=== PATIENT | female | born 1935 | race Caucasian/White ===

== ENCOUNTER 2019-01-13 09:39 | Inpatient (IN) | payer MEDICARE, OTHER ==
[~2019-01-13] VITALS: Ht 160 cm; Wt 73.2 kg
[2019-01-13] VITALS (8 sets, daily range): BP systolic 98–130; BP diastolic 40–72
[2019-01-13] MEDS ORDERED: COLACE100 MG PO (09:44)
[2019-01-13] MEDS ORDERED: ZOLOFT100 MG PO (09:44)
[2019-01-13] MEDS ORDERED: ALDACTONE25 MG PO (09:44)
[2019-01-13] MEDS ORDERED: DONEPEZIL HCL10 MG PO (09:45)
[2019-01-13] MEDS ORDERED: K-TAB10 MEQ PO (09:45)
[2019-01-13] MEDS ORDERED: COREG12.5 MG PO (09:45)
[2019-01-13] MEDS ORDERED: MELATONIN10 M1 PO (09:46)
[2019-01-13] MEDS ORDERED: VITAMIN B-121000 MCG PO (09:46)
[2019-01-13] MEDS ORDERED: SENNA LAXATIVE8.6 MG PO (09:46)
[2019-01-13] MEDS ORDERED: ACIDOPHILUS-PE1 EACH PO (09:48)
[2019-01-13] MEDS ORDERED: DEPAKOTE125 MG PO (09:48)
[2019-01-13 10:30] LABS: INR 1.22 (0.85-1.17); PROTIME 14.9 SECONDS (11.6-15.0)
[2019-01-13 10:33] LABS: ALBUMIN 3.1 g/dL (3.4-5.0); ALKALINE PHOSPHATASE 114 U/L (46-116); ALT (SGPT) 21 U/L (10-68); BILIRUBIN - TOTAL 1.59 mg/dL (0.2-1.3); CALC OSMOLALITY 276 mosm/kg (275-300); CALCIUM 9.1 mg/dL (8.5-10.1); CARBON DIOXIDE 24.2 mmol/L (21.0-32.0); CHLORIDE - SERUM 99 mmol/L (98-107); GLUCOSE 128 mg/dL (74-106); POTASSIUM - SERUM 3.9 mmol/L (3.5-5.1); PROTEIN - SERUM 7.8 g/dL (6.4-8.2); SODIUM 136 mmol/L (136-145); UREA NITROGEN 20 mg/dL (7-18); eGFR NON AFRICAN AMERICAN 56 mL/min (90-120)
[2019-01-13 10:43] LABS: CKMB 0.9 U/L (0.0-3.6); CREATINE KINASE 146 UL (21-215)
[2019-01-13 10:44] LABS: TROPONIN-I < 0.017 ng/mL (0.000-0.060)
--- NOTE | 2019-01-13 11:03 | NUR ---
MAYS CATH INSERTED IN BLADDER TO GRAVITY DRAIN BY Abeba TINSLEY RN PER / PIOTR
[2019-01-13 11:19] LABS: APPEARANCE HAZY (CLEAR); COLOR YELLOW (YELLOW); NITRITE POSITIVE (NEGATIVE)
[2019-01-13 11:20] LABS: BACTERIA MANY /hpf (NONE SEEN); BILIRUBIN NEGATIVE (NEGATIVE); GLUCOSE NEGATIVE (NEGATIVE); KETONE NEGATIVE (NEGATIVE); PROTEIN 1+ mg/dL (NEGATIVE); RED CELLS - URINE 0-5 /hpf (0-5); UROBILINOGEN NORMAL (NORMAL); WHITE CELLS - URINE 25-50 /hpf (0-5)
[2019-01-13 11:21] LABS: MUCUS <1+ /lpf (NONE SEEN)
[2019-01-13 11:49] LABS: BASOPHILS 0.3 % (0-2); EOSINOPHILS 0.4 % (0-7); HEMATOCRIT 42.6 % (36.0-48.0); HEMOGLOBIN 14.1 g/dL (12-16); IMMATURE GRANULOCYTES 0.2 % (0-5); LYMPHOCYTES 15.8 % (15-50); MCH 28.1 pg (26.0-34.0); MCHC 33.1 g/dL (31.0-37.0); MCV 84.9 fL (80.0-100.0); MEAN PLATELET VOLUME 13.3 fL (7.4-10.4); MONOCYTES 14.5 % (2-11); NEUTROPHILS 68.8 % (40-80); PLATELET COUNT 184 10x3/uL (130-400); RBC 5.02 10x6/uL (4.00-5.40); RDW 16.5 % (11.5-14.5); WBC 13.4 10x3/uL (4.8-10.8)
--- NOTE | 2019-01-13 14:10 | MORECARE ---
CASE MANAGEMENT DISCHARGE SUMMARY PATIENT: BRENT HAMMOND UNIT: [id number] ADM DATE: 01/13/19 AGE: 83 : 34 SEX: F ROOM/BED: D.E10 AUTHOR: SEDRICK SIMS PHYSICIAN: REFERRING PHYSICIAN: RAMANA PERALES MD DATE OF SERVICE: 01/13/19 Discharge Plan Patient Name: BRENT HAMMOND [facility] [facility] 1935 Planned Disposition: Anticipated Discharge Date: Discharge Date: Expected LOS: Initial Reviewer: [email or web address] Initial Review Date: 01/13/2019 Generated: 01/13/19 3:09 pm Patient Name: BRENT HAMMOND Page 50250 at 1410 All edits/amendments must be made on the electronic document DICTATION DATE: 01/13/191408 PROCESS VALIDATION ENGINEER: TORREY 01/13/19 140 RPT#: [id number] DC DATE: STATUS: ADM IN [facility] [address] [place] [address] END OF REPORT
--- NOTE | 2019-01-13 14:28 | MORECARE ---
CASE MANAGEMENT DISCHARGE SUMMARY PATIENT: BRENT HAMMOND UNIT: [id number] ADM DATE: 01/13/19 AGE: 83 : 34 SEX: F ROOM/BED: D.E10 AUTHOR: SEDRICK SIMS PHYSICIAN: REFERRING PHYSICIAN: RAMANA PREALES MD DATE OF SERVICE: 01/13/19 Discharge Plan Patient Name: BRENT HAMMOND [facility] [facility] 1935 Planned Disposition: Anticipated Discharge Date: Discharge Date: Expected LOS: Initial Reviewer: [email or web address] Initial Review Date: 01/13/2019 Generated: 01/13/19 3:27 pm Last DP export: 01/13/19 1:09 p Patient Name: BRENT HAMMOND Page 62469 at 1428 All edits/amendments must be made on the electronic document DICTATION DATE: 01/13/191426 FIELD MERCHANDISER: TORREY 01/13/191426 RPT#: [id number] DC DATE: STATUS: ADM IN [facility] [address] [place] [address] END OF REPORT
--- NOTE | 2019-01-13 15:52 | NUR ---
ROCEPHIN COMPLETE AT 1431PM.
--- NOTE | 2019-01-13 16:19 | NUR ---
ZITHROMAX INFUSION COMPLETE AT 1615PM
--- NOTE | 2019-01-13 18:25 | NUR ---
PT ARRIVED TO FLOOR VIA STRETCHER FROM ER, PT TRANSFERRED INTO [facility] 2 BED. PT IS NOT MENTALLY ABLE TO ANSWER QUESTIONS AND NO FAMILY IS PRESENT AT THIS TIME. WILL CONT TO FOLLOW POC
--- NOTE | 2019-01-13 19:46 | NUR ---
RESUMING PATIENT CARE. PATIENT RESTING COMFORTABLY IN BED. RESPIRATIONS ARE EVEN AND UNLABORED. NO S/S OF DISTRESS. NO C/O PAIN. CALL LIGHT WITHIN REACH. WILL CPOC.
[2019-01-14 00:03] VITALS: BP 120/73
[2019-01-14 04:00] VITALS: BP 105/70
[2019-01-14 05:57] LABS: BASOPHILS 0.2 % (0-2); EOSINOPHILS 0.2 % (0-7); HEMATOCRIT 37.8 % (36.0-48.0); HEMOGLOBIN 12.5 g/dL (12-16); IMMATURE GRANULOCYTES 0.2 % (0-5); LYMPHOCYTES 18.8 % (15-50); MCH 28.2 pg (26.0-34.0); MCHC 33.1 g/dL (31.0-37.0); MCV 85.3 fL (80.0-100.0); MEAN PLATELET VOLUME 12.8 fL (7.4-10.4); MONOCYTES 14.4 % (2-11); NEUTROPHILS 66.2 % (40-80); PLATELET COUNT 196 10x3/uL (130-400); RBC 4.43 10x6/uL (4.00-5.40); RDW 17.1 % (11.5-14.5); WBC 12.4 10x3/uL (4.8-10.8)
[2019-01-14 06:14] LABS: ALBUMIN 2.7 g/dL (3.4-5.0); ANION GAP 18.2 mmol/L (8-16); BILIRUBIN - TOTAL 1.32 mg/dL (0.2-1.3); CALCIUM 8.7 mg/dL (8.5-10.1); CARBON DIOXIDE 21.7 mmol/L (21.0-32.0); POTASSIUM - SERUM 3.9 mmol/L (3.5-5.1); PROTEIN - SERUM 7.1 g/dL (6.4-8.2)
--- NOTE | 2019-01-14 06:23 | NUR ---
CASTING MOLDER CALLED SHE LEFT NOTE FOR OR ABOUT PRE OP ORDERS. ALSO CALLED OR THIS AM. NURSE THAT ANSWERED SAID "SHE WILL LET THEM KNOW."
--- NOTE | 2019-01-14 06:58 | NUR ---
LEAVING FOR OR BY BED. WILL CONT. PLAN OF CARE.
--- NOTE | 2019-01-14 08:36 | NUR ---
PLASMA BLADE SET TO 6/8 BOVIE PAD LEFT THIGH [id number] EXP 03/26/2020
[2019-01-14 10:23] VITALS: BP 114/60
--- NOTE | 2019-01-14 10:25 | NUR ---
BACK FROM OR. VS WNL. RIGHT HIP DRSG CLEAN AND DRY. CALL LIGHT IN REACH. WILL CONT. PLAN OF CARE.
[2019-01-14 12:04] VITALS: Ht 160 cm; Wt 73.2 kg
[2019-01-14 12:25] VITALS: BP 119/65
--- NOTE | 2019-01-14 12:37 | OP ---
PATIENT NAME: BRENT CLAY MEDICAL RECORD: [id number] :33 LOCATION:D. D.2117 ADMISSION DATE:01/13/19 SURGEON: DANY CLAIRE DO DATE OF OPERATION: 01/14/2019 PROCEDURE PERFORMED: Right simona hip arthroplasty. PREOPERATIVE DIAGNOSIS: Displaced right femoral neck fracture. POSTOPERATIVE DIAGNOSIS: Displaced right femoral neck fracture. INDICATIONS: Ms. Clay is an 83-year-old demented female who had been in the group home and started bearing weight on her hip 2 days ago. Her family was concerned. She was brought in. X-rays were taken and she was seen to have a displaced femoral neck fracture on the right, unknown time as she had been in an unwitnessed fall. They were not aware of any other problems. They weighed the risks and benefits including , infection, bleeding, blood clots and the fact that due to her mental state and other health problems, her mortality rate is very high with this even if we did not do anything, but they chose to do surgery for pain control as a palliative measure and they were aware of the risks and her daughter signed the consent. SURGEON: Dany Claire DO DESCRIPTION OF PROCEDURE: The patient was given a block by anesthesia in the preoperative area, taken to the operative suite, given a gram of Ancef preoperatively. She was sedated and intubated and then moved over to the [place] table. The right hip was then prepped and draped in sterile fashion. A timeout was performed. Everyone was in agreement as to the correct side, site, patient and procedure. Incision then began over the anterior hip. Careful dissection was made down to the tensor fascia lauren fascia. This was incised with a Bovie. All bleeding was coagulated with Aquamantys throughout the procedure. The fascia was then taken anterior and the muscle belly posterior and the interval was opened up between the rectus and the tensor fascia lauren muscle and rectus stayed medial to the tensor fascia lauren laterally. This was opened up. The fascia was removed over the ascending branch, lateral femoral circumflex. These were tied off and coagulated with the Aquamantys and then cut. The capsule was then exposed with Homans' on either side of the neck and the capsule was opened and then a Hohmann was put inside on the neck. With the capsule tagged, it was a subcapital femoral neck fracture and so a neck cut was made. This was taken out and then the head was removed. The ligamentum teres was then removed out of the acetabulum and any bleeding was coagulated with Aquamantys at that time. The femur was then exposed. A canal finder was used and then a cookie cutter and then broaching began up to a 14. The 14 fit well. This was trialed with -6 neck and seemed to fit well, was in good position on the AP pelvis and the stem fit very well in the femur. This was then dislocated and then the actual implant was placed and the hip was reduced. Once it was reduced, x-rays were again taken, the femur looked good. No fractures were seen. It had good fill in the shaft as well as the lengths of the lesser trochanters on the AP pelvis. The wound was then irrigated. Surgicel powder and vancomycin-tobramycin powder was placed in the wound. The tensor fascia lauren fascia was then closed with #1 Vicryl, first in [id number] and then a running locking stitch and then the skin was closed with 2-0 Vicryl in inverted interrupted fashion, 4-0 Monocryl ran on the skin and Prineo on the skin. She was then dressed with Telfa and Tegaderm. She was awakened and taken to recovery in stable condition. Blood OPERATIVE REPORT [id number] MANISHBRENT Sue loss approximately 100 mL. COMPLICATIONS: None. TRANSINT:[id number] Voice Confirmation ID: [id number] DOCUMENT ID: [id number] DANY CLAIRE DO at 1237 CC: [id number] DICTATION DATE: 01/14/19912 SENIOR RESEARCH SCIENTIST: 01/14/19 1232 ADM IN [facility] [address] [place] [id number]
--- NOTE | 2019-01-14 16:32 | MORECARE ---
CASE MANAGEMENT DISCHARGE SUMMARY PATIENT: BRENT HAMMOND UNIT: [id number] ADM DATE: 01/13/19 AGE: 83 : 34 SEX: F ROOM/BED: D.[facility] AUTHOR: SEDRICK SIMS PHYSICIAN: REFERRING PHYSICIAN: RAMANA PERALES MD DATE OF SERVICE: 01/14/19 Discharge Plan Patient Name: BRENT HAMMOND Facility: [facility]:[place] : 1935 Planned Disposition: Home with Hospice Anticipated Discharge Date: 01/14/19 Discharge Date: Expected LOS: 1 Initial Reviewer: [email or web address] Initial Review Date: 01/13/2019 Generated: 01/14/19 5:31 pm DCPIA - Discharge Planning Initial Assessment Updated by [email or web address]: José Lovett on 01/14/19 4:24 pm * Is the patient Alert and Oriented? Yes * How many steps to enter\exit or inside your home? * PCP DR. TANYA LANDRUM, [facility] * Pharmacy [facility] * Preadmission Environment Hospice * Facility Name [facility] * ADLs Total Dependent * Equipment None * Other Equipment ALL MEDICAL EQUIPMENT PROVIDED BY [facility] * List name and contact numbers for known caregivers / representatives who currently or will assist patient after discharge: YAWHeidi HAMMOND, R, * Verbal permission to speak to the caregivers and representatives has been obtained from the patient. N/A * Community resources currently utilized Hospice Home * Please name any agencies selected above. [facility], 24/03 CARE PROVIDED * Additional services required to return to the preadmission environment? No * Can the patient safely return to the preadmission environment? Yes * Has this patient been hospitalized within the prior 30 days at any hospital? No Last DP export: 01/13/19 1:27 p Patient Name: BRENT HAMMOND Page 18410 at 1632 All edits/amendments must be made on the electronic document DICTATION DATE: 01/14/19 1631 ADVANCED ANALYTICS ASSOCIATE: TORREY 01/14/19 1631 RPT#: [id number] DC DATE: STATUS: ADM IN [facility] [address] [place] [address] END OF REPORT
--- NOTE | 2019-01-14 16:39 | MORECARE ---
CASE MANAGEMENT DISCHARGE SUMMARY PATIENT: BRENT HAMMOND UNIT: [id number] ADM DATE: 01/13/19 AGE: 83 : 34 SEX: F ROOM/BED: D.2861 AUTHOR: BETHANY,DOC PHYSICIAN: REFERRING PHYSICIAN: RAMANA PERALES MD DATE OF SERVICE: 01/14/19 Discharge Plan Patient Name: BRENT HAMMOND Facility: [facility]:[place] : 1935 Planned Disposition: Home with Hospice Anticipated Discharge Date: 01/14/19 Discharge Date: Expected LOS: 1 Initial Reviewer: [email or web address] Initial Review Date: 01/13/2019 Generated: 01/14/19 5:39 pm Comments DCP- Discharge Planning Updated by [email or web address]: José Lovett on 01/14/19 3:[address] Patient Name: BRENT HAMMOND Admission Status: ER Accout number: [id number] Admission Date: 01-13-2019 : 1935 Admission Diagnosis: Attending: RAMANA PERALES Current LOS: 1 Anticipated DC Date: 01-14-2019 Planned Disposition: Home with Hospice Primary Insurance: MEDICARE A & B PLANNED EXTERNAL PROVIDER: [facility] Discharge Planning Comments: CM MET WITH PT AND DAUGHTERYAW, IN ROOM TO DISCUSS DISCHARGE PLANNING AND NEEDS. PT CONFUSED, NON VERBAL. DAUGHTER REPORTS PT IS TOTAL CARE PATIENT LIVING IN [facility] PRIVATE SNF ON [address] IN [place]. THEY REVOKED HOSPICE FOR PT TO HAVE HER HIP FIXED AND PLAN TO RETURN PT TO HOSPICE AT [facility] IN THE PRIVATE SNF. CHOICE LETTER SIGNED BY DAUGHTER. CM PROVIDED AND EXPLAINED IMPORTANT MESSAGE FROM MEDICARE. CM CALLED [facility], , SPOKE TO DOMONIQUE WHO INFORMED CM THAT THEY PLAN TO ACCEPT PT BACK FOR HOSPICE CARE IN THE PRIVATE SNF. THEY WILL NEED NEW ORDER FOR HOSPICE TO "EVALUATE AND ADMIT IF APPROPRIATE" TO COMPLETE ASSESSMENT AND ADMIT AFTER PT ARRIVES AT THE SNF. FOR DISCHARGE, FAX ORDER FOR "HOSPICE EVALUATION AND ADMIT IF APPROPRIATE" TO [facility] AT [phone]. NOTIFY [facility] AT [phone]. [facility] TO EVALUATE PT FOR HOSPICE ADMISSION WITH PLANS TO ACCEPT BACK TO THE PRIVATE SNF. Faucets Assembler: José Lovett DCPIA - Discharge Planning Initial Assessment Updated by [email or web address]: José Lovett on 01/14/19 4:24 pm * Is the patient Alert and Oriented? Yes * How many steps to enter\\exit or inside your home? * PCP DR. TANYA LANDRUM, [facility] * Pharmacy [facility] * Preadmission Environment Hospice * Facility Name [facility] * ADLs Total Dependent * Equipment None * Other Equipment ALL MEDICAL EQUIPMENT PROVIDED BY [facility] * List name and contact numbers for known caregivers / representatives who currently or will assist patient after discharge: YAW HAMMOND, DTR, * Verbal permission to speak to the caregivers and representatives has been obtained from the patient. N/A * Community resources currently utilized Hospice Home * Please name any agencies selected above. [facility], 24/03 CARE PROVIDED * Additional services required to return to the preadmission environment? No * Can the patient safely return to the preadmission environment? Yes * Has this patient been hospitalized within the prior 30 days at any hospital? No External Providers External Provider: [facility] Next Contact Date: 01/14/2019 Service Request Date: Service Type: Resolution: Reviewer: Comments: Last DP export: 01/14/19 3:31 p Patient Name: BRENT HAMMOND Page [id number] at 1639 All edits/amendments must be made on the electronic document DICTATION DATE: 01/14/191638 LAND INSPECTOR: TORREY 01/14/19 1639 RPT#: [id number] DC DATE: STATUS: ADM IN [facility] [address] [place] [address] END OF REPORT
--- NOTE | 2019-01-14 19:35 | NUR ---
RESUMING PATIENT CARE. PATIENT RESTING COMFORTABLY IN BED. RESPIRATIONS ARE EVEN AND UNLABORED. NO S/S OF DISTRESS. NEEDS MET. CALL LIGHT WITHIN REACH. WILL CPOC.
[2019-01-14 20:00] VITALS: BP 140/65
[2019-01-15] VITALS: BP 138/62
[2019-01-15 04:00] VITALS: BP 114/62
[2019-01-15 07:13] LABS: HEMATOCRIT 33.4 % (36.0-48.0); HEMOGLOBIN 10.7 g/dL (12-16); MCH 27.7 pg (26.0-34.0); MCV 86.5 fL (80.0-100.0); MEAN PLATELET VOLUME 12.6 fL (7.4-10.4); RBC 3.86 10x6/uL (4.00-5.40); RDW 17.1 % (11.5-14.5); WBC 11.6 10x3/uL (4.8-10.8)
--- NOTE | 2019-01-15 09:21 | NUR ---
TELEMETRY CAF. IV PATENT. MAYS INTACT. DR. PERALES AT BS. WILL CONT. PLAN OF CARE.
[2019-01-15 11:33] VITALS: BP 97/56
[2019-01-15 15:10] VITALS: BP 112/57
[2019-01-15 20:00] VITALS: BP 148/77
--- NOTE | 2019-01-15 20:00 | NUR ---
INITIAL ROUNDS AND ASSESSMENT COMPLETED. PT LETHARGIC/CONFUSED/RESTLESS. RESISTANT TO HAVING O2 PLACED CORRECTLY AND REMOVING HER TELEMETRY LEAD FROM HER MOUTH TO KEEP HER FROM CHEWING ON IT. IV TO LEFT HAND WITH NS @ 50ML/HR AND CARDIZEM DRIP AT 5ML/HR. UCAF/103 PER TELEMETRY. MAYS PATENT TO BEDSIDE DRAIN BAG.MONITOR AND CPOC.
[2019-01-16] VITALS: BP 150/58
[2019-01-16 04:25] VITALS: BP 147/75
[2019-01-16 04:53] LABS: HEMATOCRIT 33.3 % (36.0-48.0); HEMOGLOBIN 10.7 g/dL (12-16); MCH 27.9 pg (26.0-34.0); MCHC 32.1 g/dL (31.0-37.0); MCV 86.7 fL (80.0-100.0); MEAN PLATELET VOLUME 12.3 fL (7.4-10.4); RBC 3.84 10x6/uL (4.00-5.40); RDW 16.5 % (11.5-14.5); WBC 10.5 10x3/uL (4.8-10.8)
--- NOTE | 2019-01-16 07:30 | NUR ---
RECEIVED PT IN BED EYES CLOSED RESP UNLABORED NAD NOTED WILL CONTINUE MONITOR
[2019-01-16 08:53] VITALS: BP 119/67
--- NOTE | 2019-01-16 09:47 | NUR ---
PT COMBATIVE ATTEMPTING TO BITE STAFF REFUSING TO EAT CONFUSED MEDS ORIENTED TO SELF ONLY
[2019-01-16 13:11] VITALS: BP 122/69
[2019-01-16 16:45] VITALS: BP 110/63
--- NOTE | 2019-01-16 19:18 | NUR ---
RECIEVED UP IN BED WITH EYES CLOSED. EASILY AROUSES WITH VERBAL STIMULI. CONFUSED X4. UNABLE TO ANSWER QUESTIONS. REPORTED THAT PT DOES BITE. WATER GIVEN AND ACCEPTED. SCD'S IN PLACE. DSG TO RIGHT HIP CDI. EDEMA TO RIGHT LOWER EXTREMITY. F/C PATENT WITH CLEAR YELLOW URINE TO BEDSIDE DRAINAGE SYSTEM.
[2019-01-16 20:00] VITALS: BP 136/67
--- NOTE | 2019-01-16 20:58 | NUR ---
PT UNABLE TO TURN DEEP BREATH AND COUGH DUE TO UNABLE TO FOLLOW COMMANDS.
--- NOTE | 2019-01-16 22:41 | NUR ---
PULLED TELEMETRY OFF AND UNABLE TO PUT BACK ON AT THIS TIME D/T PULLING ON LEADS.
[2019-01-17 00:30] VITALS: BP 128/65
[2019-01-17 04:30] VITALS: BP 143/106
--- NOTE | 2019-01-17 07:30 | NUR ---
RECEIVED PT IN BED EYES CLOSED RESP UNLABORED REPOSITION FOR COMFORT NAD NOTED
[2019-01-17 08:07] VITALS: BP 128/56
--- NOTE | 2019-01-17 10:00 | NUR ---
UNABLE TO GET PT TO EAT CLAMPS HER TEETH DOWN AND WILL NOT OPEN HER MOUTH
[2019-01-17 11:47] VITALS: BP 122/61
--- NOTE | 2019-01-17 13:00 | NUR ---
FAMILY HERE TO FEED PT UNABLE TO GET PT TO EAT VERYMUCH AT ALL AROUND 5% WILL CONTINUE TO MONITOR
[2019-01-17 15:42] VITALS: BP 120/66
--- NOTE | 2019-01-17 19:48 | NUR ---
RECIEVED UP IN BED WITH EYES CLOSED AND DINNER TRAY AT BEDSIDE. EASILY AROUSES WITH VERBAL STIMULI. CONFUSED AND BECOMES AGGITATED. REFUSING FLUIDS OR FOOD. O2 PLACED BACK ON. O2@ 2 LITERS PER N/C. IV TO RIGHT FA WITH NS INFUSING AT 50ML/HR. TELEMETRY IN PLACE. DSG TO RIGHT HIP CLEAN ARISTEO AND INTACT. SOME BRUISING TO AREA. F/C PATENT WITH CONCENTRATED YELLOW URINE DRAINING TO BEDSIDE DRAINAGE BAG.
[2019-01-17 20:00] VITALS: BP 114/59
--- NOTE | 2019-01-17 22:17 | NUR ---
SPITB OUT PM MEDS.
[2019-01-18] VITALS: BP 115/68
--- NOTE | 2019-01-18 00:14 | NUR ---
AFTER ADMINISTERING DILAUID ATTEMPTED TO CLEAN AND CHANGE PT. SCREAMED OUT AND SHOWED SIGNS OF PAIN. QUICKLY QUITENED DOWN WHEN FINISHED. RESTING IN BED WITH EYES CLOSED AT THIS TIME.
[2019-01-18 04:00] VITALS: BP 121/55
[2019-01-18 04:44] LABS: BASOPHILS 0.2 % (0-2); EOSINOPHILS 0.2 % (0-7); HEMATOCRIT 34.3 % (36.0-48.0); HEMOGLOBIN 11.4 g/dL (12-16); IMMATURE GRANULOCYTES 0.5 % (0-5); LYMPHOCYTES 11.9 % (15-50); MCH 28.3 pg (26.0-34.0); MCHC 33.2 g/dL (31.0-37.0); MCV 85.1 fL (80.0-100.0); MEAN PLATELET VOLUME 11.4 fL (7.4-10.4); MONOCYTES 13.9 % (2-11); NEUTROPHILS 73.3 % (40-80); RBC 4.03 10x6/uL (4.00-5.40); RDW 16.1 % (11.5-14.5); WBC 12.8 10x3/uL (4.8-10.8)
[2019-01-18 04:50] LABS: PLATELET COUNT 215 10x3/uL (130-400)
[2019-01-18 04:59] LABS: ANION GAP 10.5 mmol/L (8-16); CALCIUM 8.5 mg/dL (8.5-10.1); CARBON DIOXIDE 26.1 mmol/L (21.0-32.0); CREATININE - SERUM 0.9 mg/dL (0.6-1.3); POTASSIUM - SERUM 3.6 mmol/L (3.5-5.1)
--- NOTE | 2019-01-18 06:13 | NUR ---
PT NECK APPEARS TO HAVE STRAIGHTEN OUT. ALIGNMENT APPEARS MUCH BETTER AND LAYING HEAD ON PILLOW. HAD BEEN KEEPING NECK TO LEFT SIDE AND UP OFF OF PILLOW. RESTING COMFORTABLY AT THIS TIME WITH NO OBVIOUS S/S OF DISTRESS OBSERVED. CONTINUES TO RECIEVE NS @ 50CC/HR IV TO RIGHT AC. SCD'S IN PLACE AND WERE REMOVED EARLIER IN SHIFT FOR INSPECTION OF SKIN. SKIN INTACT.
[2019-01-18 07:56] VITALS: BP 101/73
--- NOTE | 2019-01-18 10:11 | NUR ---
IV RESTARTED TO RIGHT WRIST WITH 22 GAUGE CATH X 1 STICK AND FLUSHED WITH NS. LINE IS PATENT.
[2019-01-18 11:41] VITALS: BP 134/62
--- NOTE | 2019-01-18 14:04 | NUR ---
Nutrition follow-up: Diet: regular as tolerated pt refusing to eat, drink at most meals; family unable to get pt to eat Labs reviewed Wt: 161# No BM charted since admit RDN will order Ensure with meals RDN following.
[2019-01-18 16:21] VITALS: BP 118/68
--- NOTE | 2019-01-18 19:20 | NUR ---
RECIEVED LAYING IN BED WITH HOB ELEVATED AND EYES CLOSED. HOB ELEVATED. O2@ 2 LITES PER N/C. IV TO RIGHT AC AND LEFT FA. NS INFUSING AT 50CC/HR TO LEFT FA. UNABLE TO MAKE HER NEEDS KNOW AND DOES NOT RESPOND TO QUESTIONS. F/C PATENT WITH CLOUDY YELLOW URINE TO BEDSIDE DRAINAGE BAG. NO S/S OF DISTRESS OBSERVED AT THIS TIME.
[2019-01-18 20:00] VITALS: BP 120/68
--- NOTE | 2019-01-18 23:01 | NUR ---
PULSE HAD INCREASED TO 130'S TO [address] PERALES AND NEW ORDER FOR DIGOXIN QD AND ONE NOW. QUALITY ASSURANCE ASSESSOR NOTIFIED AND STATED SHE WOULD GET IT UP HERE.
[2019-01-19] VITALS: BP 112/65
[2019-01-19 04:00] VITALS: BP 114/52
[2019-01-19 05:53] LABS: CALC OSMOLALITY 262 mosm/kg (275-300); CALCIUM 7.8 mg/dL (8.5-10.1); CARBON DIOXIDE 25.6 mmol/L (21.0-32.0); CHLORIDE - SERUM 99 mmol/L (98-107); CREATININE - SERUM 0.7 mg/dL (0.6-1.3); GLUCOSE 87 mg/dL (74-106); POTASSIUM - SERUM 3.1 mmol/L (3.5-5.1); SODIUM 131 mmol/L (136-145); UREA NITROGEN 15 mg/dL (7-18); eGFR NON AFRICAN AMERICAN 84 mL/min (90-120)
[2019-01-19 06:55] LABS: BASOPHILS 0.3 % (0-2); EOSINOPHILS 1.2 % (0-7); HEMATOCRIT 27.9 % (36.0-48.0); IMMATURE GRANULOCYTES 0.6 % (0-5); LYMPHOCYTES 21.3 % (15-50); MCH 27.4 pg (26.0-34.0); MCHC 32.3 g/dL (31.0-37.0); MCV 85.1 fL (80.0-100.0); MEAN PLATELET VOLUME 12.1 fL (7.4-10.4); MONOCYTES 10.1 % (2-11); NEUTROPHILS 66.5 % (40-80); PLATELET COUNT 214 10x3/uL (130-400); RBC 3.28 10x6/uL (4.00-5.40); RDW 16.4 % (11.5-14.5); WBC 8.8 10x3/uL (4.8-10.8)
[2019-01-19 08:13] VITALS: BP 116/52
[2019-01-19] MEDS ORDERED: CARDIZEM CD120 MG PO (09:05)
[2019-01-19] MEDS ORDERED: ASPIRIN81 MG PO (09:06)
[2019-01-19] MEDS ORDERED: Morphine CONCENTRATE SL (09:06)
[2019-01-19] MEDS ORDERED: LORAZEPAM1 MG/0.5 M SL (09:07)
--- NOTE | 2019-01-19 10:59 | MORECARE ---
CASE MANAGEMENT DISCHARGE SUMMARY PATIENT: BRENT HOLLINS UNIT: [id number] ADM DATE: 01/13/19 AGE: 83 : [birth year] SEX: F ROOM/BED: D.9473 AUTHOR: BETHANY,DOC PHYSICIAN: REFERRING PHYSICIAN: RAMANA PERALES MD DATE OF SERVICE: 01/19/19 Discharge Plan Patient Name: BRENT HLOLINS Facility: [facility]:[place] : 1935 Planned Disposition: Home with Hospice Anticipated Discharge Date: 01/19/19 Discharge Date: Expected LOS: 6 Initial Reviewer: [email or web address] Initial Review Date: 01/13/2019 Generated: 01/19/19 11:59 am Comments DCP- Discharge Planning Updated by [email or web address]: José Lovett on 01/19/19 9:[address] Patient Name: BRENT HOLLINS Encounter No: [id number] : 1935 Primary Insurance: MEDICARE A & B Anticipated DC Date: 01-19-2019 Planned Disposition: Home with Hospice External Planned Provider: [facility] DCP follow-up note: CM RECEIVED DISCHARGE ORDER, MET WITH PT IN ROOM WHO DID NOT RESPOND TO CM AT ALL. CM PROVIDED AND EXPLAINED IMPORTANT MESSAGE FROM MEDICARE, LEFT COPY IN ROOM TO GO WITH PT AT DISCHARGE. CM CALLED [facility], , SPOKE TO [place] WHO WAS AWARE OF THE DISCHARGE TODAY AND PROVIDED CM WITH ADDRESS FOR DISCHARGE: [facility], [address] [place] [address]; PROVIDED [facility]'S CONTACT NUMBER OF [phone]. CM CALLED [facility] WHO INFORMED CM THAT PT'S DAUGHTER CALLED THIS MORNING AND THE CAREGIVER IS HOME AND EXPECTING PT BY AMBULANCE TODAY, THEY DO NOT NEED NURSE REPORT AND [facility] WILL HAVE HOSPICE EVALUATE PT AFTER PT'S ARRIVAL HOME TODAY. CM FAXED DISCHARGE INFORMATION TO [facility] AT [phone]. EQUIPMENT SERVICE LEAD NOTIFIED. PREETI Murdock DCP- Discharge Planning Updated by [email or web address]: José Lovett on 01/14/19 3:[address] Patient Name: BRENT HOLLINS Admission Status: ER Accout number: [id number] Admission Date: 01-13-2019 : 1935 Admission Diagnosis: Attending: RAMANA PERALES Current LOS: 1 Anticipated DC Date: 01-14-2019 Planned Disposition: Home with Hospice Primary Insurance: MEDICARE A & B PLANNED EXTERNAL PROVIDER: [facility] Discharge Planning Comments: CM MET WITH PT AND DAUGHTER, MATTHEW, IN ROOM TO DISCUSS DISCHARGE PLANNING AND NEEDS. PT CONFUSED, NON VERBAL. DAUGHTER REPORTS PT IS TOTAL CARE PATIENT LIVING IN [facility] PRIVATE RETIREMENT ON [address] IN [place]. THEY REVOKED HOSPICE FOR PT TO HAVE HER HIP FIXED AND PLAN TO RETURN PT TO HOSPICE AT [facility] IN THE PRIVATE RETIREMENT. CHOICE LETTER SIGNED BY DAUGHTER. CM PROVIDED AND EXPLAINED IMPORTANT MESSAGE FROM MEDICARE. CM CALLED [facility], , SPOKE TO DOMONIQUE WHO INFORMED CM THAT THEY PLAN TO ACCEPT PT BACK FOR HOSPICE CARE IN THE PRIVATE RETIREMENT. THEY WILL NEED NEW ORDER FOR HOSPICE TO "EVALUATE AND ADMIT IF APPROPRIATE" TO COMPLETE ASSESSMENT AND ADMIT AFTER PT ARRIVES AT THE RETIREMENT. FOR DISCHARGE, FAX ORDER FOR "HOSPICE EVALUATION AND ADMIT IF APPROPRIATE" TO [facility] AT [phone]. NOTIFY [facility] AT [phone]. [facility] TO EVALUATE PT FOR HOSPICE ADMISSION WITH PLANS TO ACCEPT BACK TO THE PRIVATE RETIREMENT. Insurance Special Agent: [facility] Planning Initial Assessment Updated by [email or web address]: José Lovett on 01/14/19 4:24 pm * Is the patient Alert and Oriented? Yes * How many steps to enter\\exit or inside your home? * PCP DR. TANYA LANDRUM, [facility] * Pharmacy [facility] * Preadmission Environment Hospice * Facility Name [facility] * ADLs Total Dependent * Equipment None * Other Equipment ALL MEDICAL EQUIPMENT PROVIDED BY [facility] * List name and contact numbers for known caregivers / representatives who currently or will assist patient after discharge: MATTHEW HOLLISN, DTR, * Verbal permission to speak to the caregivers and representatives has been obtained from the patient. N/A * Community resources currently utilized Hospice Home * Please name any agencies selected above. [facility], 24/03 CARE PROVIDED * Additional services required to return to the preadmission environment? No * Can the patient safely return to the preadmission environment? Yes * Has this patient been hospitalized within the prior 30 days at any hospital? No Coverage Notice Reviewer: LEANDRO Lovett Notice Issued Date-Time: 01/14/2019 15:50 Notice Type: Patient Choice Letter Notice Delivered To: Family Member Relationship to Patient: Daughter Electric Detector Operator Name: matthew hollins Delivery Method: HAND - Hand Delivered Veronique Days: Prior Verbal Notification: Recipient Understood Notice: Yes Recipient Signature: Yes Med Rec Note Co-signed by Attending: Coverage Notice Comment: [facility] Reviewer: LEANDRO Lovett Notice Issued Date-Time: 01/14/2019 15:50 Notice Type: IM Discharge Notice Notice Delivered To: Family Member Relationship to Patient: Daughter Electric Detector Operator Name: matthew hollins Delivery Method: HAND - Hand Delivered Veronique Days: Prior Verbal Notification: Recipient Understood Notice: Yes Recipient Signature: Med Rec Note Co-signed by Attending: Coverage Notice Comment: Reviewer: LEANDRO Lovett Notice Issued Date-Time: 01/19/2019 9:50 Notice Type: IM Discharge Notice Notice Delivered To: Patient Relationship to Patient: Electric Detector Operator Name: Delivery Method: - Veronique Days: Prior Verbal Notification: Recipient Understood Notice: Recipient Signature: Med Rec Note Co-signed by Attending: Coverage Notice Comment: Last DP export: 01/14/19 3:39 p Patient Name: BRENT HOLLINS Page 98750 at 1059 All edits/amendments must be made on the electronic document DICTATION DATE: 01/19/191057 CERTIFIED NURSE PRACTITIONER: TORREY 01/19/19 1058 RPT#: [id number] DC DATE: STATUS: ADM IN [facility] [address] [place] [address] END OF REPORT
--- NOTE | 2019-01-19 11:57 | NUR ---
IV, TELEMETRY AND MAYS DCD. [facility] CALLED FOR TRANSPORT. WILL CONT. PLAN OF CARE.
--- NOTE | 2019-01-19 12:15 | NUR ---
LEAVING FOR HOME BY AMBULANCE.
== END 2019-01-19 12:15 | disposition home health service (06) | DRG 469 ==
LOC: D.ER 09:39 → D.M2 13:13 → D.EDHOLD 13:13 → D.M2 16:13
PROVIDERS: Family Medicine; Orthopaedic Surgery; ADMIT Family Medicine; ATTEND Family Medicine
PROC: 0SR90JZ Replacement of Right Hip Joint with Synthetic Substitute, Open Approach (ICD-10-PCS; principal; 2019-01-14 08:29)
DX: S72.001A Fracture of unspecified part of neck of right femur, initial encounter for closed fracture (principal); J18.1 Lobar pneumonia, unspecified organism; R40.2214 Coma scale, best verbal response, none, 24 hours or more after hospital admission; N39.0 Urinary tract infection, site not specified; W18.30XA Fall on same level, unspecified, initial encounter; Z91.81 History of falling; I48.2 Chronic atrial fibrillation; G30.9 Alzheimer's disease, unspecified; F02.80 Dementia in other diseases classified elsewhere, unspecified severity, without behavioral disturbance, psychotic disturbance, mood disturbance, and anxiety; Z66 Do not resuscitate; R40.2134 Coma scale, eyes open, to sound, 24 hours or more after hospital admission; R40.2354 Coma scale, best motor response, localizes pain, 24 hours or more after hospital admission